=== PATIENT | male | born 1970 | race Caucasian/White ===

== ENCOUNTER → 2023-03-13 09:54 | Outpatient (CLI) | payer OTHER, SELFPAY ==
[2023-03-13 10:35] LABS: Hemoglobin A1C% w Est Avg Glu 5.7 % (4.0-6.0)
[2023-03-13 10:53] LABS: Alanine Aminotransferase 95 IU/L (<50); Albumin 4.9 g/dL (3.5-5.0); Albumin Globulin Ratio 1.3 (1.0-2.8); Alkaline Phosphatase 74 U/L (38-126); Aspartate Aminotransferase 67 IU/L (17-59); BUN Creatinine Ratio 17.2 (6-22); Bilirubin Total 1.3 mg/dL (0.2-1.3); Blood Urea Nitrogen 17 mg/dL (9-20); Calcium 10.7 mg/dL (8.4-10.2); Carbon Dioxide 28 mmol/L (22-32); Chloride 100 mmol/L (98-107); Cholesterol 255 mg/dL (140-199); Estimated Glomerular Filt Rate > 60 mL/min (>60); Globulin 3.9 g/dL (1.7-4.1); Glucose 117 mg/dL (70-100); HDL Cholesterol 55 mg/dL (40-60); HEMOLYSIS < 15 (0-50); LDL Cholesterol Calculated 175 mg/dL (<100); Sodium 139 mmol/L (137-145); Total Protein 8.8 g/dL (6.3-8.2); Triglycerides 124 mg/dL (35-150)
[2023-03-13 10:56] LABS: Potassium 5.5 mmol/L (3.4-5.1)
[2023-03-13 13:24] LABS: Microalbumin Urine Random 112.6 mg/dL (0-1.6)
[2023-03-13 17:56] LABS: Creatinine Urine Random 483.9 mg/dL; Microalbumi Creatinin Ratio Ur 232.6 ug/mg CR (<30)
[2023-03-14 17:53] LABS: HIV 1 & 2 Ab/Ag 4th Gen Combo NEGATIVE (NEGATIVE); Hep C Virus Ab w/Reflex Quant NEGATIVE s/c (NEGATIVE)
== END ==
PROVIDERS: PCP Family Medicine; Referring Provider Family Medicine; Visit Provider Family Medicine
DX: Z11.59 Encounter for screening for other viral diseases (principal); Z11.4 Encounter for screening for human immunodeficiency virus [HIV]; I10 Essential (primary) hypertension
CPT/HCPCS: 36415; 80053; 80061; 82043; 82570; 83036; 86803; 87389

== ENCOUNTER → 2023-05-29 09:58 | Outpatient (CLI) | payer OTHER, SELFPAY ==
[2023-05-29 10:54] LABS: Alanine Aminotransferase 55 IU/L (<50); Albumin 4.9 g/dL (3.5-5.0); Albumin Globulin Ratio 1.3 (1.0-2.8); Alkaline Phosphatase 66 U/L (38-126); Aspartate Aminotransferase 61 IU/L (17-59); BUN Creatinine Ratio 17.8 (6-22); Bilirubin Total 1.2 mg/dL (0.2-1.3); Blood Urea Nitrogen 16 mg/dL (9-20); Carbon Dioxide 28 mmol/L (22-32); Chloride 99 mmol/L (98-107); Estimated Glomerular Filt Rate > 60 mL/min (>60); Globulin 3.7 g/dL (1.7-4.1); Glucose 120 mg/dL (70-100); HEMOLYSIS < 15 (0-50); Potassium 4.6 mmol/L (3.4-5.1); Sodium 140 mmol/L (137-145); Total Protein 8.6 g/dL (6.3-8.2)
[2023-05-29 11:06] LABS: Vitamin D 25 Hydroxy (D3) 44.7 ng/mL (30.0-100.0)
[2023-05-30 15:36] LABS: Albumin 4.2 g/dL (2.9-4.4); Alpha-1-Globulin 0.3 g/dL (0.0-0.4); Alpha-2-Globulin 0.9 g/dL (0.4-1.0); Gamma Globulin 1.3 g/dL (0.4-1.8); Globulin Total 3.8 g/dL (2.2-3.9)
[2023-05-30 22:42] LABS: Free Kappa Lt Chains, Serum 14.6 mg/L (3.3-19.4); Free Lambda Lt Chains,Serum 12.8 mg/L (5.7-26.3)
[2023-05-31 10:47] LABS: Parathyroid Hormone Int 22 pg/mL (15-65)
== END ==
PROVIDERS: PCP Family Medicine; Referring Provider Family Medicine; Visit Provider Family Medicine
DX: I10 Essential (primary) hypertension (principal); E78.5 Hyperlipidemia, unspecified; E83.52 Hypercalcemia
CPT/HCPCS: 36415; 80053; 82306; 82330; 83883; 83970; 84155; 84165; 84443

== ENCOUNTER 2023-07-25 10:18 | Day surgery (SDC) | payer OTHER, SELFPAY ==
--- NOTE | 2023-07-25 | PATH_ITS ---
[facility] Accession Number: [id number] No. of containers..01 Tissue . 01 Material submitted: . sigmoid colon - SIGMOID POLYP . 01 Diagnosis: SIGMOID COLON POLYP: Colonic mucosa with prominent benign lymphoid aggregate. Negative for serrated lesion, dysplasia, or malignancy. [facility] 08/01/2023 1055 Local . 01 Electronically signed: . Franco Guillen MD, PhD, Pathologist NPI- [id number] . 01 Gross description: . SIGMOID POLYP: Received in formalin is 1 fragment(s) of cardoso, soft tissue measuring 0.5 x 0.4 x 0.1 cm submitted entirely in 1 cassette(s) /ISMAEL 07/29/2023 2304 Local . 01 Pathologist provided ICD-10: K63.5 . 01 CPT . 769905 Specimen Comment: A courtesy copy of this report has been sent to [phone] Performed at: 01 [facility] [address] [place] [address] [address] [facility], [place], [place] [id number] MD Christiano Montilla MD Phone: [phone]
[2023-07-25 12:10] VITALS: BP 184/101; PULSE 81; RESP 16; TEMP 36.1; O2SAT 100
[2023-07-25] MEDS: LACTATED RINGERS 1,000 ML 42 ML IV (12:20)
--- NOTE | 2023-07-25 12:32 | PM.HP.1 ---
History of Present Illness History of Present Illness Date Patient Seen: 07/25/23 Time Patient Seen: 12:32 Chief complaint: SD Narrative: Jozef is a 52 year old man here for his first screening colonoscopy. No family history of colon cancer. [facility] Medical History (Updated 07/25/23 @ 12:33 by Junito Beaver MD) Elevated LFTs Microalbuminuria IFG (impaired fasting glucose) Hyperlipidemia Benign essential HTN Acne (~1991) Chicken pox Surgical History (Updated 03/25/19 @ 21:07 by Mari Rider) Collar bone fracture (~1972) Family History (Updated 03/25/19 @ 21:11 by Mari Rider) Grandfather No problems noted. Grandmother History of heart disease Grandfather Cancer Grandmother Parkinson's disease Social History Smoking Status: Former smoker alcohol intake: current Meds Home Medications and Allergies Home Medications Medication Instructions Recorded Confirmed Type atorvastatin 40 mg tablet (Lipitor) 40 mg PO DAILY cholesterol #90 tabs 05/29/23 07/25/23 Rx chlorthalidone 25 mg tablet 25 mg PO DAILY blood pressure #90 05/29/23 07/25/23 Rx tabs losartan 100 mg tablet 100 mg PO DAILY blood pressure #90 05/29/23 07/25/23 Rx tabs peg 3350-sod sulf,svbif-dee-vil 1,000 ml PO DIRECTED #2,000 mL 06/10/23 07/25/23 Rx 178.7-7.3-0.5-1.12-0.9 gram oral soln (Suflave) Allergies Allergy/AdvReac Type Severity Reaction Status Date / Time No Known Drug Allergies Allergy Verified 07/25/23 12:08 Exam Vital Signs (past 8 hours): - 07/25/23 12:10 Temperature 97 F L Pulse Rate 81 Respiratory Rate 16 Blood Pressure 184/101 H Pulse Oximetry 100 Oxygen Delivery Method Room Air Oxygen Delivery Method Room Air Const General: No acute distress Resp Effort & Inspection: normal respiratory effort Assessment & Plan Assessment and plan (1) Colon cancer screening: Status: Acute Plan We reviewed the risks and benefits of colonoscopy for colon cancer screening and he would like to proceed.
--- NOTE | 2023-07-25 13:14 | PM.OP.COLON ---
Operative Date/Time/Diagnoses Date of procedure: 07/25/23 Time of procedure: 13:14 Pre-op diagnosis: Colon cancer screening Post-op diagnosis: same Procedure & Clinicians Study performed: Colonoscopy Same procedure as scheduled: Yes Surgeon: Junito Beaver Procedure Notes Procedure in detail: Surgeon: Junito Beaver MD Anesthesia: Aziza Wren CRNA Procedure: The patient was brought to the endoscopy suite, placed in left lateral decubitus position. The patient was connected to monitoring devices. A time-out was performed. Sedation was administered. Once the patient was adequately sedated, a digital rectal exam was performed and was normal. The scope was then inserted and advanced to the cecum where the appendiceal orifice was identified and photographed. The scope was then slowly withdrawn over greater than 6 minutes. The mucosa was thoroughly inspected. There was a 5 mm polyp in the sigmoid colon removed with a cold snare. The scope was retroflexed in the rectum. No other abnormalities were found. The scope was straightened and removed. The patient was awakened and brought to recovery. Scope withdrawal time: 7 minutes Sedation time: 10 minutes EBL: 5 mL Findings: 5 mm polyp in the sigmoid colon Post-procedure Disposition: PACU
[2023-07-25 13:18] VITALS: BP 121/79; PULSE 67; RESP 15; TEMP 36.3; O2SAT 98
[2023-07-25 13:23] VITALS: BP 125/86; PULSE 66; RESP 15; O2SAT 98
[2023-07-25 13:28] VITALS: BP 145/97; PULSE 69; RESP 14; O2SAT 98
[2023-07-25 13:34] VITALS: BP 147/94; PULSE 71; RESP 16; TEMP 36.7; O2SAT 98
== END 2023-07-25 13:35 | disposition home or self-care (01) ==
PROVIDERS: PCP Family Medicine; Referring Provider Surgery; Visit Provider Surgery
PROC: 0DJD8ZZ Inspection of Lower Intestinal Tract, Via Natural or Artificial Opening Endoscopic (ICD-10-PCS; CPT 45378; principal; 2023-07-25 11:15)
DX: Z12.11 Encounter for screening for malignant neoplasm of colon (principal); K63.5 Polyp of colon
CPT/HCPCS: 45385; J2704

== ENCOUNTER → 2025-03-09 09:20 | Outpatient (CLI) | payer OTHER, SELFPAY ==
--- NOTE | 2025-03-09 09:21 | DI.ECHO.S_ITS ---
[place] [facility] : : [id number] : [address] [address] : : [id number] : : Phone: [phone] Echocardiogram Report + + :Name: DENISE COLINDRES JR Study Date: 03/09/2025 Height: 71 in : :[facility] ReadingLocation: Weight: 220 lb : : Gender: Male BSA: 2.2 m2 : :: 1970 Age: 54 yrs BP: 192/108 mmHg: :Reason For Study: MURMUR, HYPERTENSION : :Ordering Physician: PHIL, : :SOY Performed By: Vivek Benites : :Referring: SOY VILLARREAL : + + Interpretation Summary 1) Normal left ventricular size, wall motion, and systolic function (EF 55- 60%). 2) Normal right ventricular size and function. 3) Bicuspid aortic valve suspected. There is mild aortic stenosis (valve area 1.6cm2, mean gradient 17mmHg). No aortic regurgitation is present. 4) The ascending aorta is severely enlarged at 4.8cm. 5) No prior Echo available for comparison. Procedure: A two-dimensional transthoracic echocardiogram with color flow and Doppler was performed. The study quality was technically adequate. There is no prior echocardiogram noted for this patient. The patient was in normal sinus rhythm during the exam. Left Ventricle: The left ventricle is normal in size. Left ventricular wall thickness is mildly increased. There is no ventricular septal defect visualized. The ejection fraction is estimated to be 55-60%. There are no focal wall motion abnormalities. Diastolic parameters suggest probable normal left ventricular diastolic function and normal filling pressures. Right Ventricle: The right ventricle is normal in size and function. Atria: The left atrial size is normal. Right atrial size is normal. There is no Doppler evidence for an interatrial shunt. Mitral Valve: The mitral valve leaflets are mildly calcified. There is no mitral regurgitation noted. Aortic Valve: The aortic valve is moderately calcified. Bicuspid aortic valve suspected. There is mild aortic stenosis. The calculated aortic valve area is 1.6 cm2. The peak aortic velocity is 2.76 m/sec. The aortic valve mean gradient is 17.0 mmHg. No aortic regurgitation is present. Tricuspid Valve: The tricuspid valve leaflets are thin and pliable. No tricuspid regurgitation. Pulmonic Valve: The pulmonic valve is not well seen, but is grossly normal. There is trace pulmonic regurgitation. Great Vessels: The aortic root is mildly dilated. The ascending aorta is severely enlarged. The pulmonary artery is not well visualized, but is probably normal size. The IVC is of normal diameter and collapses greater than 50% with a sniff. This suggests a low right atrial pressure of 3 mm Hg. Pericardium/ Pleura There is no pericardial effusion. There is no pleural effusion. MMode/2D Measurements & Calculations LVIDd: 4.7 cm LVOT diam: 2.1 cm LVIDs: 3.5 cm Ao root diam: 4.0 cm FS: 25.7 % asc Aorta Diam: 4.8 cm EPSS: 0.68 cm Ao Arch Diam (Prox Trans): 3.2 cm IVSd: 1.2 cm LVPWd: 1.0 cm LV kim. diameter/BSA (cm/m^2): 2.1 LV sys. diameter/BSA (cm/m^2): 1.6 LA A2 area: 23.3 cm2 RA long axis: 3.7 cm LA A4 area: 14.8 cm2 RA area: 10.3 cm2 LA length (vol): 4.9 cm RA vol: 24.8 ml LA vol: 60.4 ml RA : 11.3 ml/m2 LA vol index: 27.5 ml/m2 IVC diam: 1.8 cm RVD1 (basal): 3.8 cm RVD2 (mid): 3.2 cm TAPSE: 2.3 cm Doppler Measurements & Calculations Ao V2 max: 276.0 cm/sec LVOT Max Quinn: 111.4 cm/sec Ao V2 mean: 192.1 cm/sec LV V1 max P.0 mmHg Ao max P.5 mmHg LV V1 VTI: 23.0 cm Ao mean P.0 mmHg [place](I,D): 1.6 cm2 Ao V2 VTI: 49.7 cm [place](V,D): 1.4 cm2 sev ratio: 0.46 [place] indexed to BSA (cm^2/m^2): 0.73 MV E max quinn: 91.3 cm/sec PA V2 max: 148.8 cm/sec MV A max quinn: 77.1 cm/sec PA V2 mean: 82.5 cm/sec MV E/A: 1.2 PA mean P.3 mmHg Med Peak E' Quinn: 9.3 cm/sec PA pr(Accel): 68.7 mmHg E/E' med: 9.8 Lat Peak E' Quinn: 9.3 cm/sec E/E' lat: 9.8 E/e' average: 9.8 MV dec time: 0.16 sec SV(LVOT): 79.9 ml Reading Physician:12:41 PM
== END ==
LOC: ECHO 09:20
PROVIDERS: PCP Family Medicine; Referring Provider Family Medicine; Visit Provider Family Medicine
DX: I35.0 Nonrheumatic aortic (valve) stenosis (principal); I1A.0 Resistant hypertension; R01.1 Cardiac murmur, unspecified; R80.9 Proteinuria, unspecified; I77.810 Thoracic aortic ectasia; I77.89 Other specified disorders of arteries and arterioles
CPT/HCPCS: 93306